=== PATIENT | male | born 1945 | race Caucasian/White ===

== ENCOUNTER 2024-09-10 14:09 | Emergency (ER) | payer SELFPAY ==
[2024-09-10 14:16] VITALS: BP 120/52
[2024-09-10 15:12] LABS: % Basophils 0.4 % (0-2); % Eosinophils 0.4 % (0-6); % Immature Granulocytes 0.3 % (0-0.5); % Lymphocytes 11.9 % (20.5-51.1); % Monocytes 9.3 % (1.7-9.3); % Neutrophils 77.7 % (42.2-75.2); Absolute Lymphocytes 0.8 10^3/uL (1.2-3.4); Absolute Monocytes 0.7 10^3/uL (0.1-0.6); Absolute Neutrophils 5.4 10^3/uL (1.4-6.5); Hematocrit 38.3 % (39.0-52.0); Hemoglobin 12.6 g/dL (13.0-18.0); Mean Corp Hgb Conc. 32.9 g/dL (33.0-37.0); Mean Corpuscular Hgb 27.3 pg (27.0-31.0); Mean Corpuscular Volume 83.1 fL (80.0-94.0); Mean Platelet Volume 8.9 fL (7.4-10.4); Nucleated Red Blood Cells % 0 % (-); Platelet Count 162 10^3/uL (130-400); Red Blood Cell Count 4.61 10^6/uL (4.70-6.10)
[2024-09-10 15:26] LABS: ALT (SGPT) 20 U/L (0-50); AST (SGOT) 29 U/L (17-59); Albumin 4.1 g/dl (3.5-5.0); Alkaline Phosphatase 61 U/L (38-126); Blood Urea Nitrogen 20 mg/dl (9-20); Calcium 8.6 mg/dl (8.4-10.2); Carbon Dioxide 21 mmol/L (22-30); Chloride 102 mmol/L (98-107); Glucose 126 mg/dl (70-99); Lipase 198 U/L (23-300); Potassium 3.6 mmol/L (3.5-5.1); Sodium 133 mmol/L (135-145); Total Bilirubin 0.7 mg/dl (0.2-1.3); Total Protein 6.3 g/dl (6.3-8.2); eGFR > 60.00
[2024-09-10 15:34] LABS: COVID-19 Antigen Negative (Negative)
--- NOTE | 2024-09-10 16:14 | ED.GENMED ---
History of Present Illness
General
Chief Complaint: Abdominal Symptoms
Source: patient
Exam Limitations: none
Time Seen by Provider: 09/10/24 16:14
Nursing documentation reviewed up to this point in time: agreed with
History of Present Illness
History of Present Illness:
The patient is a 78-year-old man who arrives with complaints of severe fatigue for 5 days. Patient complains of generalized weakness, tiredness, nausea, vomiting and diarrhea. Patient last had vomiting 3 days ago. He has not had any vomiting
since. Patient reports mild diarrhea this morning. He denies any blood in the diarrhea. He denies abdominal pain. He denies headache and rash. He reports his is sick with similar symptoms.
Past History
Past History
ED Past Medical History: CAD, HTN and Hypercholesterolemia
ED Past Surgical History: Cardiac and Orthopedic
Social History
Tobacco: Former smoker
Alcohol: None
Drug: None
Personal:
Living: with family
Employment: Retired
Family History
Family History: Other
Review of Systems
Review of Systems
Allergies reviewed?: Yes
All Other Systems: ROS reviewed and negative except as documented in HPI and ROS
Constitutional: Reports fatigue and chills
EENT: Reports no symptoms
Respiratory: Reports cough
Cardiac: Reports no symptoms
ABD/GI: Reports nausea, vomiting and diarrhea
: Reports no symptoms
Musculoskeletal: Reports muscle pain
Skin: Reports no symptoms
Neurological: Reports no symptoms
Endocrine: Reports no symptoms
Hematologic/Lymphatic: Reports no symptoms
Psychiatric: Reports no symptoms
Phy Exam
Physical Exam
Physical Exam:
Physical Exam
General: no apparent distress, not acutely ill
Neck: supple. no meningeal signs. normal psoterior pharynx
Heart: s1/s2 regular rate and rhythm, no murmur. equal radial pulses.
Lungs: no acute respiratory distress. clear bilaterally
Abdomen: normal bowel sounds. not tender. no CVAT
Neuro: alert and oriented. no focal neurological deficits
Skin: no rash
Psychiatric: well kept. interactive and cooperative
Extremities: no edema. no calf tenderness. negative homans. good distal pulses
Course
Orders/Labs/Results
Orders:
Orders
09/10/24 14:41
COVID-19 Antigen Urgent
Source: Nasal Swab
Complete Blood Count/With Diff Urgent
Comprehensive Metabolic Panel Urgent
Lipase Urgent
Influenza A+B Rapid Molecular Urgent
JERI Source: Nasal Swab
Specimen Description:
09/10/24 16:56
Ibuprofen [Motrin] 600 mg PO NOW STA
Abnormal Lab Results
09/10/24
14:41
RBC 4.61 L 10^6/uL
(4.70-6.10)
Hgb 12.6 L g/dL
(13.0-18.0)
Hct 38.3 L %
(39.0-52.0)
MCHC 32.9 L g/dL
(33.0-37.0)
Absolute Lymphs (auto) 0.8 L 10^3/uL
(1.2-3.4)
Absolute Monos (auto) 0.7 H 10^3/uL
(0.1-0.6)
Neutrophils % 77.7 H %
(42.2-75.2)
Lymphocytes % 11.9 L %
(20.5-51.1)
Sodium 133 L mmol/L
(135-145)
Carbon Dioxide 21 L mmol/L
(22-30)
Glucose 126 H mg/dl
(70-99)
09/10/24 14:41
09/10/24 14:41
Vital Signs
Initial and Last Documented VS:
Initial Vital Signs
Temp Pulse Resp BP Pulse Ox
99.3 F 85 16 120/52 92
09/10/24 14:16 09/10/24 14:16 09/10/24 14:16 09/10/24 14:16 09/10/24 14:16
Last Documented Vital Signs
Temp Pulse Resp BP Pulse Ox
99.3 F 84 18 112/58 95
09/10/24 14:16 09/10/24 17:23 09/10/24 17:23 09/10/24 17:23 09/10/24 17:23
MDM/Problems Addressed
Differential Diagnosis Includes:
Acute dehydration, acute hyponatremia, pneumonia, influenza, COVID
MDM/Problems Addressed:
Patient presents with acute fatigue, nausea, vomiting and diarrhea and cough
Chronic conditions affecting care: CAD
Acute Exacerbation and/or Progression of Chronic Illness:
Patient has no chest pain or shortness of breath to suggest acute coronary syndrome.
Acute Exacerbation and/or Progression of Chronic Illness: CAD
*Pulse Oximetry
Patient hypoxic: no
*EKG
Interpreted by ED Provider?: NA
*Mold Cutting Machine Operator Interpretation
Rate: normal
Interpretation: normal
Rhythm: sinus
*Critical Care Note
Total Time (30-74mins, 75-104mins- exclusive of procedures): Not Applicable
Data Reviewed
Source: patient
Patient Management
Social determinants of health affecting care: Living situation and Strong social support
Escalation/DeEscalation of care consider admission/obs:
Patient shows no sign of meningitis. His lungs are clear and there is no sign of pneumonia or respiratory distress. Patient reports he is able to keep fluids down and self hydrate
ED Attending Note
-
Portions of this chart may have been created with voice recognition software.� Occasional wrong word or��sound alike� substitutions may have occurred due to the inherent limitations of voice recognition software.
Discharge Plan
Departure
Patient Disposition: Home (Routine Discharge)
Date of Disposition: 09/10/24
Time of Disposition: 16:57
Patient with high blood pressure during this ER visit?: No
Condition: Good
Covid-19: Negative COVID-19
Discharge Problem:
Influenza A
Instructions: Flu in adults - ED discharge instructions
Interventions
Interventions:
*Risk Screen - Suicide Last Done: 09/10/24 14:16
*General Assessment Last Done: 09/10/24 14:16
*Neglect/Abuse Screening Last Done: 09/10/24 14:16
*ED COVID-19 Vaccine History Last Done: 09/10/24 17:22
*Nursing Disposition Last Done: 09/10/24 17:59
QP-[id number] Assessment Last Done: 09/10/24 17:24
Discharge Date and Time
Discharge Date/Time: 09/10/24 18:00
Print Language: INDIAN
[2024-09-10 17:23] VITALS: BP 112/58
== END 2024-09-10 18:00 | disposition home or self-care (01) ==
LOC: EMR 14:09
PROVIDERS: EMERGENCY PHYSICIAN Emergency Medicine; FAMILY PHYSICIAN Internal Medicine Geriatric Medicine
DX: J10.1 Influenza due to other identified influenza virus with other respiratory manifestations (principal); I25.10 Atherosclerotic heart disease of native coronary artery without angina pectoris; I10 Essential (primary) hypertension; E78.00 Pure hypercholesterolemia, unspecified; Z87.891 Personal history of nicotine dependence
CPT/HCPCS: 99283; 80053; 83690; 85025; 87502; 87811